=== PATIENT | female | born 1990 | race Two or more races ===

== ENCOUNTER 2023-11-12 09:06 | Emergency (ER) | payer SELFPAY ==
[~2023-11-12] VITALS: Ht 152.4 cm; Wt 71.9 kg
[2023-11-12 10:35] VITALS: BP 112/54; PULSE 62; RESP 16; TEMP 99.4; O2SAT 100
== END 2023-11-12 11:40 | disposition home or self-care (01) ==
LOC: ER 09:08
DX: S61.512D Laceration without foreign body of left wrist, subsequent encounter (principal); Z88.6 Allergy status to analgesic agent; X58.XXXD Exposure to other specified factors, subsequent encounter